=== PATIENT | male | born 2000 | race African-American/Black ===

== ENCOUNTER 2023-12-02 18:49 | Emergency (ER) | payer OTHER ==
[~2023-12-02] VITALS: Ht 182.9 cm; Wt 93.2 kg
[2023-12-02 18:54] VITALS: BP 118/69; PULSE 100; RESP 18; TEMP 100.2
[2023-12-02] MEDS ORDERED: ACET-3385 PO (20:16)
[2023-12-02] MEDS ORDERED: IBUP-1492 PO (20:16)
[2023-12-02] MEDS ORDERED: AMOX1TAB16 PO (20:16)
[2023-12-02] MEDS: AMOX TR/POT CLAV 875 MG/125 MG TABLET PO ONE (20:30)
[2023-12-02] MEDS: IBUPROFEN 600 MG TABLET PO ONE (20:30)
[2023-12-02] MEDS: ACETAMINOPHEN 500 MG TABLET PO ONE (20:30)
[2023-12-02] MEDS: DEXAMETHASONE SOD PHOS 4 MG/ML VIAL IM ONE (20:31)
== END 2023-12-02 20:40 | disposition home or self-care (01) ==
LOC: EMS 18:49
DX: J03.90 Acute tonsillitis, unspecified (principal)
CPT/HCPCS: 99283; 87430; 96372; J1100